=== PATIENT | female | born 1965 | race Hispanic/Latino ===

== ENCOUNTER 2018-08-25 12:28 | Day surgery (SDC) | payer OTHER ==
[2018-08-14 11:20] VITALS: BMI 36.0
[2018-08-25] MEDS ORDERED: Iodixanol 320 MG/ML 100 ML BOTTLE IV ONE (14:17)
[2018-08-25] MEDS ORDERED: Iohexol 350mgl/ml 50 ML ONE (14:17)
[2018-08-25] MEDS ORDERED: Lidocaine 2% Inj (20ml) ONE ×2 (14:17→14:45)
[2018-08-25] MEDS ORDERED: Nitroglycerin 50mg in D5W 50 MG/250 ML BOTTLE IV ONE (14:18)
[2018-08-25] MEDS ORDERED: Iodixanol 320 MG/ML 200 ML BOTTLE IV ONE (14:18)
[2018-08-25] MEDS ORDERED: Midazolam 2 MG/2 ML VIAL ONE ×3 (14:45→15:07)
[2018-08-25] MEDS ORDERED: Labetalol 5mg/ml (4ml) ONE (15:10)
[2018-08-25] MEDS ORDERED: DiphenhydrAMINE 50 mg/ml Inj ONE (15:14)
[2018-08-25] MEDS ORDERED: Sodium Chloride 0.9% 1,000 ML IV SCH (15:45)
[2018-08-25 17:44] VITALS: RESP 18; TEMP 98.4
[2018-08-25] MEDS ORDERED: HYDROmorphone 2 mg/ml ISec IVP STA (18:36)
[2018-08-25 22:30] VITALS: BP 149/78; PULSE 89
--- NOTE | 2018-08-26 08:29 | CARDCATH ---
PROCEDURE DATE: 08/25/2018 INDICATIONS: Julienne Parra is a 52-year-old female who underwent angioplasty and stenting of mid LAD last week. Post-procedure, the patient therefore was transferred to the ICU and subsequently transferred back to [facility]. She was brought back for staged angioplasty of the left circumflex in-stent restenosis. PROCEDURE PERFORMED: Left heart cath with selective coronary angiogram. Left ventricular diastolic pressure noted with LV gram. POBA of the left circumflex in-stent restenosis with use of subsequent 1.5, 2.0, 2.5 and 3.0 noncompliant balloons. Degeneration from 99%, now to less than 10% improvement in TANIA flow. ANGIOGRAPHIC FINDINGS: Left main large-sized vessel bifurcates into LAD and circumflex, LAD and mid stent widely patent. Left circumflex diffuse in-stent restenosis 99% of the proximal and mid circ. INTERVENTION PERFORMED: XB 3.0 guiding catheter was used to engage the left coronary system. Whisper wire was negotiated through the stenosis into the distal circumflex territory. The lesion was predilated with 1.5 balloon and subsequently with 2.0 and 2.5 balloon and a 3.0 noncompliant balloon was used for final angioplasty of the in-stent restenosis. Final angiogram then showed regeneration down to less than 10% TANIA-3 flow. IMPRESSION: Successful plain old balloon angioplasty of the left circumflex in-stent restenosis with regeneration down to less than 10%. RECOMMENDATIONS: The patient can be transferred back to [facility] in 3 hours. Continue dual antiplatelet therapy. The patient can be proceed with safety with the removal of hardware of the foot with Dr. Segura. Taran Colin MD cc: Phong Segura DPM
== END 2018-08-25 22:50 | disposition short-term general hospital (02) ==
LOC: CATH 12:28 → 2RSO 16:23 → CATH 22:50
PROVIDERS: ATTEND Internal Medicine Interventional Cardiology
DX: T82.855A Stenosis of coronary artery stent, initial encounter (principal); Y83.8 Other surgical procedures as the cause of abnormal reaction of the patient, or of later complication, without mention of misadventure at the time of the procedure
CPT/HCPCS: 92920; 93458; 99152; 99153; C1725 ×4; C1760; C1769 ×2; C1887 ×2; C1894; J0360; J1170; J1200; J1644 ×2; J2250; J3010; J7030; J7040; Q9966; Q9967